=== PATIENT | female | born 1990 | race Caucasian/White ===

== ENCOUNTER 2019-04-19 16:47 | Inpatient (IN) ==
[2019-04-19 17:24] LABS: Basophils # 0.1 K/mcL (0.0-0.2); Basophils % 0.4 %; Eosinophils % 0.1 %; Hematocrit 49.9 % (35.3-44.9); Hemoglobin 16.9 g/dL (11.5-15.4); Immature Granulocytes % 0.4 % (0-4); Lymphocytes # 3.1 K/mcL (0.6-4.6); Lymphocytes % 18.3 %; Mean Corpuscular HGB Conc 33.9 g/dL (31.6-35.5); Mean Corpuscular Hemoglobin 31.7 pg (28.0-33.3); Mean Corpuscular Volume 93.6 fL (83.0-100.0); Mean Platelet Volume 9.5 fL (9.4-12.4); Monocytes # 1.3 K/mcL (0.0-1.3); Monocytes % 7.5 %; Neutrophils # 12.6 K/mcL (1.6-8.9); Platelet Count 280 K/mcL (140-400); Red Blood Count 5.33 M/mcL (3.82-4.97); Red Cell Distribution Width 13.2 % (11.5-14.5); Segmented Neutrophils % 73.3 %; White Blood Count 17.1 K/mcL (4.3-11.1)
[2019-04-19 17:30] LABS: Bilirubin,Urine Negative (Negative); Blood,Urine Negative (Negative); Clarity,Urine Cloudy (Clear); Color,Urine Dark Yellow (Yellow); Glucose,Urine (UA) Normal (Normal); Ketones,Urine Trace mg/dL (Negative); Leukocyte Esterase,Urine Small (Negative); Nitrite,Urine Negative (Negative); Protein,Urine Trace mg/dL (Neg-Trace); Specific Gravity,Urine 1.029 (1.010-1.025); Urobilinogen,Urine Normal (Normal)
[2019-04-19 17:32] LABS: Bacteria,Urine Few per hpf (None-Few); Hyaline Casts,Urine None Seen per lpf (None-Few); Squamous Epithelial Cell,Urine Many per lpf (None-Few)
[2019-04-19 17:40] LABS: Amphetamine Screen,Urine Negative ng/mL (Cutoff=1000); Barbiturate Screen,Urine Negative ng/mL (Cutoff=200); Benzodiazepines Screen,Urine Negative ng/mL (Cutoff=200); Cannabinoid Screen,Urine Positive ng/mL (Cutoff = 50); Cocaine Screen,Urine Negative ng/mL (Cutoff= 300); Opiate Screen,Urine Negative ng/mL (Cutoff=300); Phencyclidine Screen,Urine Negative ng/mL (Cutoff=25)
[2019-04-19 17:47] LABS: Acetaminophen < 10 mcg/mL (10-20); BUN/Creatinine Ratio 15 (6-26); Blood Urea Nitrogen 12 mg/dL (6-20); Calcium 9.9 mg/dL (8.6-10.3); Carbon Dioxide 22 mEq/L (23-29); Chloride 106 mEq/L (98-107); Ethanol < 10 mg/dL (Less than 10); Glucose 90 mg/dL (70-105); Osmolality,Calculated 285 (280-300); Potassium 3.8 mEq/L (3.5-5.1); Salicylate < 2.5 mg/dL (15.0-30.0); Sodium 138 mEq/L (136-145); eGFR For African Americans > 60 (> 60); eGFR For Non-African Americans > 60 (> 60)
[2019-04-19] MEDS ORDERED: Mag Hydrox/Al Hydrox/Simeth 30 ML UDC PO PRN (19:27)
[2019-04-19] MEDS ORDERED: Nicotine 2 MG GUM BC PRN (19:27)
[2019-04-19] MEDS ORDERED: *HR* LORazepam 1 MG TABLET PO PRN (19:27)
[2019-04-19] MEDS ORDERED: Haloperidol Lactate 5 MG/ML VIAL IM PRN (19:27)
[2019-04-19] MEDS ORDERED: *HR* LORazepam 2 MG/ML VIAL IM PRN (19:27)
[2019-04-19] MEDS ORDERED: MOM Conc 10 ML UD.LIQ PO PRN (19:27)
[2019-04-19] MEDS ORDERED: haloperidoL 5 MG TABLET PO PRN (19:27)
[2019-04-19] MEDS ORDERED: traZODone 50 MG TABLET PO PRN (19:27)
[2019-04-19] MEDS ORDERED: Acetaminophen 325 MG TABLET PO PRN (19:36)
[2019-04-19] MEDS: Nicotine 2 MG GUM BC PRN (20:36)
[2019-04-20] MEDS: hydrOXYzine pamoate 25 MG CAPSULE PO PRN ×3 (11:22→20:02)
[2019-04-20] MEDS: Nicotine 2 MG GUM BC PRN (11:59)
[2019-04-20] MEDS: Lurasidone 20 MG TABLET PO SCH (15:39)
[2019-04-21] MEDS: hydrOXYzine pamoate 25 MG CAPSULE PO PRN ×3 (03:11→22:23)
[2019-04-21] MEDS: Lurasidone 20 MG TABLET PO SCH (09:08)
[2019-04-21] MEDS: Nicotine 2 MG GUM BC PRN ×2 (12:08→20:35)
[2019-04-21] MEDS ORDERED: traZODone 50 MG TABLET PO SCH (21:00)
[2019-04-22] MEDS: Lurasidone 20 MG TABLET PO SCH (08:27)
[2019-04-22 09:48] VITALS: BP 113/79
[2019-04-22] MEDS ORDERED: Mirtazapine 15 MG TABLET PO SCH (21:00)
== END 2019-04-22 13:55 | disposition home or self-care (01) | DRG 885 ==
LOC: EMEROOARM 16:47 → 1ANU 19:20
PROVIDERS: ADMIT Psychiatry & Neurology Psychiatry; ATTEND Psychiatry & Neurology Psychiatry